=== PATIENT | female | born 1975 | race Caucasian/White ===

== ENCOUNTER → 2016-10-21 | Outpatient (CLI) | payer BC | LOC: BHSO 08:59 | DX: F41.1 Generalized anxiety disorder (principal) ==

== ENCOUNTER → 2016-12-31 | Outpatient (CLI) | payer BC | LOC: BHSO 09:20 | DX: F41.1 Generalized anxiety disorder (principal) ==

== ENCOUNTER → 2017-04-10 | Outpatient (CLI) | payer BC | LOC: BHSO 09:00 | DX: F41.1 Generalized anxiety disorder (principal) ==

== ENCOUNTER → 2017-08-26 | Outpatient (CLI) | payer BC | LOC: BHSO 10:04 | DX: F41.1 Generalized anxiety disorder (principal) | CPT/HCPCS: G0463 ==

== ENCOUNTER → 2017-11-25 | Outpatient (CLI) | payer BC | LOC: BHSO 08:59 | DX: F33.42 Major depressive disorder, recurrent, in full remission (principal) | CPT/HCPCS: G0463 ==

== ENCOUNTER → 2018-05-26 | Outpatient (CLI) | payer BC | LOC: BHSO 09:02 | DX: F33.42 Major depressive disorder, recurrent, in full remission (principal) | CPT/HCPCS: G0463 ==

== ENCOUNTER → 2019-04-08 | Outpatient (CLI) | payer BC | LOC: MC.RAD 07:47 | DX: Z12.31 Encounter for screening mammogram for malignant neoplasm of breast (principal); N64.89 Other specified disorders of breast; N63.20 Unspecified lump in the left breast, unspecified quadrant ==

== ENCOUNTER → 2019-04-13 | Outpatient (CLI) | payer BC | LOC: MC.RAD 14:00 | DX: R92.1 Mammographic calcification found on diagnostic imaging of breast (principal); N60.02 Solitary cyst of left breast; N63.20 Unspecified lump in the left breast, unspecified quadrant ==

== ENCOUNTER → 2019-04-14 | Outpatient (CLI) | payer BC | LOC: MC.RAD 08:30 | DX: R92.0 Mammographic microcalcification found on diagnostic imaging of breast (principal); R92.8 Other abnormal and inconclusive findings on diagnostic imaging of breast ==

== ENCOUNTER → 2020-04-06 | Outpatient (CLI) | payer BC | LOC: MC.RAD 08:30 | DX: R22.31 Localized swelling, mass and lump, right upper limb (principal); Z90.13 Acquired absence of bilateral breasts and nipples ==

== ENCOUNTER → 2020-06-04 | Outpatient (CLI) | payer BC | LOC: ZCOL.LAB 17:04 | DX: R43.2 Parageusia (principal); Z20.828 Contact with and (suspected) exposure to other viral communicable diseases ==

== ENCOUNTER 2022-09-30 14:46 | Observation (INO) | payer BC ==
[~2022-09-30] VITALS: Ht 170.2 cm; Wt 106.8 kg
[2022-09-30 16:37] LABS: COLLECTION METHOD CLEAN CATCH
[2022-09-30 16:44] LABS: URINE APPEARANCE Clear (CLEAR/HAZY); URINE BLOOD 1+ (NEGATIVE); URINE COLOR Yellow (YELLOW); URINE GLUCOSE Negative (NEGATIVE); URINE KETONE Negative (NEGATIVE); URINE NITRATE Negative (NEGATIVE); URINE PROTEIN(semi-quant) Negative (NEGATIVE); URINE UROBILINOGEN 0.2 E.U/dL (0.2-1.0)
[2022-09-30 16:50] LABS: MUCOUS Present (NOT PRESENT); SQUAMOUS EPITHELIAL 0-2 /hpf (0-10); URINE BACTERIA Rare /hpf (NONE SEEN)
[2022-09-30 17:06] LABS: BASO # 0.1 K/mm3 (0.0-0.2); BASO % 0.5 % (0.0-2.0); EOS # 0.1 K/mm3 (0.0-0.7); EOS % 0.4 % (0.0-4.0); GRAN # 11.6 K/mm3 (1.4-6.5); GRAN % 81.2 % (42.2-75.2); HEMATOCRIT 38.1 % (37.0-47.0); HEMOGLOBIN 12.5 g/dl (12.5-16.0); LYMPH # 1.6 K/mm3 (1.2-3.4); LYMPH % 10.8 % (20.0-51.0); MEAN CELL VOLUME 89 fl (80.0-100.0); MEAN CORPUSCULAR HEMOGLOBIN 29 pg (27-31); MEAN CORPUSCULAR HGB CONC 33 g/dl (33.0-37.0); MEAN PLATELET VOLUME 9.6 fl (7.4-10.4); MONO % 6.6 % (1.7-9.3); PLATELET COUNT 408 K/mm3 (130-400); REDCELL DISTRIBUTION WIDTH-CV 12.9 % (11.5-14.5)
[2022-09-30 17:22] LABS: ALBUMIN 3.5 gm/dL (3.5-5.0); BILIRUBIN,TOTAL 0.3 mg/dL (0.2-1.2); C-REACTIVE PROTEIN 1.15 mg/dL (0.00-0.50); CALCIUM 8.9 mg/dL (8.4-10.2); CREATININE, serum 0.81 mg/dL (0.57-1.11); POTASSIUM 3.7 mmol/L (3.5-4.5); TOTAL PROTEIN 7.2 gm/dL (6.2-8.1)
--- NOTE | 2022-09-30 21:15 | NUR ---
PATIENT ARRIVES TO FLOOR FOR ADMIT TO ROOM 331, VOIDED PER BATHROOM, AMBULATING WITH NO PROBLEMS CURRENTLY. REPORTS PAIN LEVEL OF 4-5/10 CURRENTLY.
[2022-09-30 21:20] VITALS: BP 146/82; PULSE 87; TEMP 98.8
[2022-09-30] MEDS ORDERED: ABILIFY5 MG PO (21:40)
[2022-09-30] MEDS ORDERED: PRISTIQ100 MG PO (21:40)
[2022-09-30] MEDS ORDERED: WELLBUTRIN XL300 M1 PO (21:41)
[2022-09-30] MEDS ORDERED: LAMICTAL200 MG PO (21:42)
[2022-09-30] MEDS ORDERED: XANAX 0.5MG0.5 MG PO (21:43)
[2022-09-30] MEDS ORDERED: NATURAL IRON65 MG PO (21:44)
[2022-09-30 23:34] VITALS: BP 135/75; PULSE 82; TEMP 98.7
[2022-10-01] VITALS (13 sets, daily range): BP systolic 114–143; BP diastolic 58–88; PULSE 72–95; TEMP 98.1–98.8
--- NOTE | 2022-10-01 01:21 | NUR ---
REPORT VERY LITTLE RELIEF WITH DILAUDID DOSE, SEE MAR FOR MS GIVEN. DENIES NAUSEA AT THIS TIME. IV FLUIDS INFUSING WITH NO PROBLEMS.
--- NOTE | 2022-10-01 04:00 | NUR ---
PATIENT WANTING MORE MEDS FOR PAIN, CALLED DR RHODES, ORDERS GIVEN FOR IV TORADOL 30MG, SEE [facility] ORDERS.
--- NOTE | 2022-10-01 06:42 | NUR ---
CHANGE OF SHIFT REPORT GIVEN TO DAY SHIFT RNADALI. PATIENT RESTING QUIETLY AT TIME OF REPORT.
--- NOTE | 2022-10-01 09:28 | NUR ---
Initial visit; Patient and her thanked Payroll Consultant for looking in on her and offering God's blessings and to keep her in Payroll Consultant's prayers.
[2022-10-01] MEDS ORDERED: PROVIGIL 100MG100 MG PO ×2 (10:30→10:33)
--- NOTE | 2022-10-01 11:27 | NUR ---
Netting Weaver met with patient to discuss discharge planning. Patient lives in [place] with her , Brook (ph#[phone]) and their two children, ages 15 and 17. Patient is going to [facility] [employer] studying school counseling. Patient sees Dr. Shaina Gooden for primary care and obtains medications from [facility] with no difficulties. Patient stated she is supposed to wear a CPAP but doesn't. Patient is independent with ADLS and plans to return home at time of discharge. Patient does not have DPOA-HC and is not interested in completing one at this time. Discharge Plan: Home with family
--- NOTE | 2022-10-01 19:23 | NUR ---
RECEIVED CHANGE OF SHIFT REPORT FROM DAY SHIFT RN. PATIENT RESTING IN BED, AMBULATED TO BATHROOM WITH NO ASST AFTER REPORT. IV FLUIDS INFUSING WITH NO PROBLEMS. DENIES ANY COMPLAINTS OR NEEDS AT THIS TIME.
[2022-10-02 00:19] VITALS: BP 128/74; PULSE 87; TEMP 99.4
[2022-10-02 04:00] VITALS: BP 113/59; PULSE 83; TEMP 98.2
--- NOTE | 2022-10-02 06:25 | NUR ---
IV SITE INFILTRATED, NO REDNESS, 1- 1.5 IN SWELLING WITH NO PAIN, NOT COLD TO TOUCH, SLIGHT COOL.
--- NOTE | 2022-10-02 07:01 | NUR ---
CHANGE OF SHIFT REPORT GIVEN TO DAY SHIFT RNNISHANT.
--- NOTE | 2022-10-02 07:04 | NUR ---
Received shift report from the night nurseSandy RN
[2022-10-02 07:35] VITALS: BP 95/54; PULSE 79; TEMP 98.2
--- NOTE | 2022-10-02 08:30 | NUR ---
Patient laying in bed alert and oriented . 4 lap site dressing dry and intact. Bowel sounds present in all 4 quadrant. Patient has slightly swelling left hand from the IV site. INT discontinued by the night nurse and applied ice at the affected area. Patient denies pain at this time. See process intervention for notes.
--- NOTE | 2022-10-02 09:34 | NUR ---
Patient c/o at abdomen and rated pain level 5/10. Patient request for pain medication and roxicodone 5mg administered. Will continue to monitor pain level.
[2022-10-02 11:41] VITALS: BP 108/59; PULSE 77; TEMP 99.1
[2022-10-02] MEDS ORDERED: TYLENOL 500MG500 MG PO (12:14)
[2022-10-02] MEDS ORDERED: ROXICODONE 55 MG/TAB PO (12:14)
[2022-10-02] MEDS ORDERED: LEVAQUIN 5500 MG/TA1 PO (12:56)
== END 2022-10-02 15:05 | disposition home or self-care (01) ==
LOC: COL.ER 14:46 → SURG 19:32
PROVIDERS: Nurse Practitioner; ADMIT Surgery
DX: K80.00 Calculus of gallbladder with acute cholecystitis without obstruction (principal); G47.33 Obstructive sleep apnea (adult) (pediatric); Z85.3 Personal history of malignant neoplasm of breast
CPT/HCPCS: G0378; J0690; J1100; J1170; J1885; J1956; J2270; J2405; J2704; J3010; J7030; Q9967